=== PATIENT | female | born 1980 | race Caucasian/White ===

== ENCOUNTER 2020-04-23 18:36 | Emergency (ER) | payer BC, OTHER ==
[~2020-04-23] VITALS: Ht 172.7 cm; Wt 86.2 kg
[2020-06-06] MEDS ORDERED: HYDACE10B PO (04:16)
[2020-06-06] MEDS ORDERED: PRED20 PO (04:16)
== END 2020-04-23 20:15 | disposition home or self-care (01) ==
LOC: ER 18:36
DX: S90.31XA Contusion of right foot, initial encounter (principal); W22.8XXA Striking against or struck by other objects, initial encounter
CPT/HCPCS: 73630; 99283-25